=== PATIENT | female | born 1995 | race Caucasian/White ===

== ENCOUNTER 2018-12-03 14:55 | Emergency (ER) | payer OTHER ==
[~2018-12-03] VITALS: Ht 162.6 cm; Wt 70.8 kg
[~2018-12-03 14:55] MED LIST: ACET-6134 PO; FERR325E14 PO; PREN-385 PO; THE PO
[2018-12-03 15:02] VITALS: BP 121/78
--- NOTE | 2018-12-03 15:43 | NUR ---
PT AMBULATED TO ER BED 09
--- NOTE | 2018-12-03 15:45 | NUR ---
23 YO F BIB SELF W/ C/O SORE THROAT X YESTERDAY. PT PRESENTS W/ BL ENLARGED TONSILS W/ NOTED WHITE PATCHES. PT STATES IT IS UNBEARABLE TO SWALLOW. REPORTS FEVERS AND CONGESTION. PT W/ TEMP 99.0 AT THIS TIME. ANTIPYRETIC TAKEN 0700 THIS MORNING. REPORTS NAUSEA, DENIES V/D. AIRWAY PATENT. RR EVEN AND UNLABORED.
--- NOTE | 2018-12-03 16:52 | NUR ---
Patient discharged with v/s stable. Written and verbal after care instructions given and explained. Patient alert, oriented and verbalized understanding of instructions. Ambulatory with steady gait. All questions addressed prior to discharge. ID band removed. Patient advised to follow up with PMD. Rx of Penicillin, Moyers, and Ibuprofen given. Patient educated on indication of medication including possible reaction and side effects. Opportunity to ask questions provided and answered.
[2018-12-03 19:51] VITALS: BP 117/73
== END 2018-12-03 16:52 | disposition home or self-care (01) ==
LOC: MED 14:55
DX: J02.9 Acute pharyngitis, unspecified (principal); Z79.899 Other long term (current) drug therapy
CPT/HCPCS: 87081; 99283

== ENCOUNTER 2022-05-11 13:20 | Emergency (ER) | payer OTHER ==
[~2022-05-11] VITALS: Ht 154.9 cm; Wt 74.8 kg
[~2022-05-11 13:20] MED LIST changes: +ACET-10509 PO; -ACET-6134 PO
[2022-05-11 13:41] VITALS: BP 105/55
--- NOTE | 2022-05-11 14:45 | NUR ---
PT AMBULATED TO ROOM 11
--- NOTE | 2022-05-11 14:50 | NUR ---
26YO FEMALE PT C/O LOWER BACK PAIN AND 10/10 MIGRAINE XYESTERDAY. PT ALSO STATES CHILLS XYESTERDAY. PT STATES TAKING TYLENOL TO RELIEF PAIN AND HAD MILD RELIEF. PT DENIES CHEST PAIN , N/V/D OR FEVERS.PT CURRENTLY ESTIMATED 15 WEEKS. PT COMFIRMED BEGINNING OF THE MONTH WITH HER LAST MENSTRUAL BEING IN JANUARY. PT DENIES CARE OR ANY OB ROUTINE CHECK UPS. DENIES VAGINAL BLEEDING. PT AAOX4. NHX NKA
--- NOTE | 2022-05-11 14:50 | NUR ---
PT SWABBED FOR COVID([facility]) AND FLU. WALKED TO LAB
--- NOTE | 2022-05-11 15:29 | NUR ---
PA FRASER AT BEDSIDE Addendum: 05/11/22 at 1530 by [facility]SEP PA FRASER AT BEDSIDE FOR ULTRASOUND
[2022-05-11] MEDS ORDERED: ACETAMINOPHEN EXTRA STRENGTH 500 MG TAB PO ONE (15:35)
[2022-05-11] MEDS ORDERED: ACET-9882 PO (16:05)
[2022-05-11 16:25] VITALS: BP 114/70
--- NOTE | 2022-05-11 17:26 | NUR ---
The patient's care was reviewed and supervised by Mindy Trejo, RN, RN.
--- NOTE | 2022-05-11 17:26 | NUR ---
Patient discharged with v/s stable. Written and verbal after care instructions given and explained. Patient verbalized understanding. Ambulatory with steady gait. All questions addressed prior to discharge. Advised to follow up with PMD.
== END 2022-05-11 16:20 | disposition home or self-care (01) ==
LOC: MED 13:20
DX: O23.42 Unspecified infection of urinary tract in pregnancy, second trimester (principal); Z20.822 Contact with and (suspected) exposure to COVID-19; O26.891 Other specified pregnancy related conditions, first trimester; M79.18 Myalgia, other site; Z3A.15 15 weeks gestation of pregnancy; Z79.899 Other long term (current) drug therapy
CPT/HCPCS: 81002; 81025; 87086; 99283